=== PATIENT | male | born 1940 | race Caucasian/White ===

== ENCOUNTER 2017-04-27 07:39 | Observation (INO) | payer MEDICARE ==
[~2017-04-27] VITALS: Ht 175.3 cm; Wt 70.9 kg
[~2017-04-27 07:39] MED LIST: AMLO5TAB2 PO; ASPI-110 PO; BUPIVACAINE HCL PF 0.5% 30 ML VIAL ONE; CALC-187 PO; COQ150CA PO; FISHCAP4 PO; GELFOAM SIZE 100 ONE; GENTAMICIN SULFATE 80 MG/2 ML VIAL ONE; MULTTAB67 PO; PRED5TAB PO; PROS5TAB PO; SERT25TA83 PO; SIMV10TA PO; THROMBIN (TOPICAL) 5,000 UNIT VIAL ONE; VITACAP7 PO; ceFAZolin 2 GM PREMIX 50 ML ONE; methylPREDNISolone ACETATE 40 MG/ML VIAL ONE
[2017-04-27] MEDS ORDERED: INSULIN HUMAN REGULAR 1,000 UNITS/10 ML VIAL SQ PRN (08:45)
[2017-04-27] MEDS ORDERED: SODIUM CHLORID 0.9% 500 ML IV PRN (08:45)
[2017-04-27] MEDS ORDERED: VANCOMYCIN HCL 1000 MG ON-CALL/NS 250 ML IV SCH ×2 (08:45)
[2017-04-27] MEDS ORDERED: POVIDONE IODINE 5% (ANTISEPSIS KIT) 4 APPLICATIONS EACH NARE PRN (08:45)
[2017-04-27] MEDS ORDERED: LACTATED RINGER'S 1000 ML IV PRN (08:45)
[2017-04-27] MEDS ORDERED: METOPROLOL TARTRATE 25 MG TAB PO PRN (08:45)
[2017-04-27] MEDS ORDERED: CHLORHEXIDINE GLUCONATE 2 % 1 PACK (2 CLOTHS) TOPICAL PRN (08:45)
[2017-04-27 08:52] VITALS: BP 158/88; PULSE 61; RESP 18; TEMP 97.7; O2SAT 99
[2017-04-27] MEDS ORDERED: SODIUM CHLOR 0.9% 1000 ML INJ 1,000 ML IV SCH (09:00)
[2017-04-27 09:11] LABS: APTT (PATIENT) 29.1 SEC (24.3-30.1)
[2017-04-27] MEDS ORDERED: ACETAMINOPHEN 1000 MG/100 ML VIAL IV ONE (10:29)
[2017-04-27] MEDS ORDERED: MIDAZOLAM HCL 2 MG/2 ML VIAL ONE (10:29)
[2017-04-27] MEDS ORDERED: fentaNYL CITRATE 250 MCG/5 ML AMP ONE (10:30)
[2017-04-27] MEDS ORDERED: DO NOT ADM ANY ANTICOAGULANT DRUGS PRN (12:33)
[2017-04-27] MEDS ORDERED: MORPHINE SULFATE 4 MG/ML INJ IV PUSH PRN ×2 (13:00)
[2017-04-27] MEDS ORDERED: ACETAMINOPHEN 325 MG TAB PO PRN (13:00)
[2017-04-27] MEDS ORDERED: SODIUM CHLORIDE 0.9% FLUSH 5 ML FLUSH IVF PRN (13:00)
[2017-04-27] MEDS ORDERED: *morphine SULFATE 8 MG/ML PERIprocedure ONLY ONE ×2 (13:21→14:15)
[2017-04-27] MEDS ORDERED: PHENYLEPH/NS 1000 MCG/10 ML SYR IV ONE (14:03)
[2017-04-27] MEDS ORDERED: PROPOFOL 200 MG/20 ML AMP IV ONE (14:03)
[2017-04-27] MEDS ORDERED: ONDANSETRON HCL 4 MG/2 ML VIAL IV PUSH ONE (14:04)
[2017-04-27] MEDS ORDERED: LACTATED RINGER'S 1000 ML INJ 1,000 ML IV ONE (14:04)
--- NOTE | 2017-04-27 16:01 | RADRPT ---
EXAM DATE/TIME: 04/27/2017 11:11 [place] COMPARISON: No previous studies available for comparison. INDICATIONS : Level Localization L4,L5 laminectomy. MEDICAL HISTORY : None. SURGICAL HISTORY : None. ENCOUNTER: Initial ACUITY: 1 day PAIN SCORE: Non-responsive. LOCATION: Lumbar spine. FINDINGS: Surgical instruments are noted posteriorly at the L4-5 level. CONCLUSION: 1. Surgical instruments noted posteriorly at the L4-5 level. Sheldon Cruz MD on April 27, 2017 at 15:56 Board Certified Radiologist. This report was verified electronically.
[2017-04-27] MEDS: ACETAMINOPHEN/HYDROcodone 325 MG/10 MG TAB PO PRN ×2 (16:16→21:25)
[2017-04-27] MEDS: ceFAZolin 2 GM PREMIX 50 ML IV SCH (18:00)
[2017-04-27 20:00] VITALS: BP 142/82; PULSE 67; RESP 18; TEMP 97.9; O2SAT 96
[2017-04-27] MEDS: DOCUSATE SODIUM 100 MG CAP PO SCH (21:23)
[2017-04-27] MEDS: SODIUM CHLORIDE 0.9% FLUSH 5 ML FLUSH IVF SCH (21:24)
[2017-04-27] MEDS: NS + KCL 20 MEQ INJ 1,000 ML IV SCH (22:39)
[2017-04-28] VITALS: BP 125/74; PULSE 55; RESP 18; TEMP 97.9; O2SAT 96
[2017-04-28] MEDS: ceFAZolin 2 GM PREMIX 50 ML IV SCH ×2 (01:47→09:36)
[2017-04-28] MEDS: ACETAMINOPHEN/HYDROcodone 325 MG/10 MG TAB PO PRN ×3 (01:55→11:55)
[2017-04-28 04:00] VITALS: BP 135/70; PULSE 59; RESP 18; TEMP 98.2; O2SAT 97
[2017-04-28 08:20] VITALS: BP 168/86; PULSE 62; RESP 20; TEMP 98.6; O2SAT 98
[2017-04-28] MEDS ORDERED: amLODIPine BESYLATE 5 MG TAB PO SCH (09:00)
[2017-04-28] MEDS ORDERED: SERTRALINE HCL 50 MG TAB PO SCH (09:00)
[2017-04-28] MEDS ORDERED: PRAVASTATIN SOD 20 MG TAB PO SCH (09:00)
[2017-04-28] MEDS ORDERED: NON-FORMULARY DRUG (Coenzyme Q10 (Ubidecarenone) (Coq10) 100 MG) PO SCH (09:00)
[2017-04-28] MEDS ORDERED: MULTIVITAMIN TAB PO SCH (09:00)
[2017-04-28] MEDS ORDERED: CALCIUM CARBONATE 500 MG CHEWABLE TAB PO SCH (09:00)
[2017-04-28] MEDS ORDERED: FINASTERIDE 5 MG TAB PO SCH (09:00)
[2017-04-28] MEDS ORDERED: NON-FORMULARY DRUG (Fish Oil-Cholecalciferol (Fish Oil + D3) 1 CAP) PO SCH (09:00)
[2017-04-28] MEDS ORDERED: predniSONE 5 MG TAB PO SCH (09:00)
[2017-04-28] MEDS ORDERED: PANTOPRAZOLE SOD 40 MG DELAYED RELEASE TAB PO SCH (09:00)
[2017-04-28] MEDS ORDERED: VITAMIN B COMPLEX/VIT C TAB PO SCH (09:00)
[2017-04-28] MEDS ORDERED: HYDR-3583 PO (09:01)
[2017-04-28] MEDS: DOCUSATE SODIUM 100 MG CAP PO SCH (09:37)
[2017-04-28] MEDS: SODIUM CHLORIDE 0.9% FLUSH 5 ML FLUSH IVF SCH (09:39)
[2017-04-28] MEDS: NS + KCL 20 MEQ INJ 1,000 ML IV SCH (09:39)
--- NOTE | 2017-04-28 09:54 | HHI.DCPOC ---
Discharge Care Plan Diagnosis: (1) S/P lumbar laminectomy Goals to Promote Your Health * To prevent worsening of your condition and complications * To maintain your health at the optimal level Directions to Meet Your Goals Take your medications as prescribed Follow your dietary instruction Follow activity as directed Keep your appointments as scheduled Take your immunizations and boosters as scheduled If your symptoms worsen call your PCP, if no PCP go to Urgent Care Center or Emergency Room Smoking is Dangerous to Your Health. Avoid second hand smoke Call the 24-hour hour crisis hotline for domestic abuse at Connie Duval Apr 28, 2017 09:54
--- NOTE | 2017-04-28 09:54 | HHI.DS ---
Discharge Summary Admission Date Apr 27, 2017 at 12:58 Discharge Date: Apr 28, 2017 Admitting Diagnosis s/p lumbar laminectomy and microdiscectomy (1) S/P lumbar laminectomy ICD Code: Z98.890 Brief History Mr Sosa is a 76 year-old male who presented with intractable back pain and génesis evidence of right L5 lower extremity radiculopathy. He failed maximum nonsurgical management including multiple modalities of conservative treatment as well as pain management interventions by an interventional pain specialist. A surgical decompression was indicated as a last resort. Imaging Last Impressions Lumbar Spine X-Ray 04/27/17 0000 Signed Impressions: Service Date/Time: Thursday, April 27, 2017 11:11 - CONCLUSION: 1. Surgical instruments noted posteriorly at the L4-5 level. Sheldon Cruz MD Hospital Course Mr. Sosa underwent a right L4-5 hemilaminectomy, mesoofacetectomy, foraminotomy with microsurgical resection of the disk on Apr 27, 2017. He was discharged home in stable conditions. Wound care and activity restrictions were discussed. Pt Condition on Discharge: Stable Discharge Disposition: Discharge Home Discharge Instructions DIET: Follow Instructions for: Heart Healthy Diet ACTIVITIES You can perform: Weight Bearing As Leidy ADDITIONAL Activity Instructio: Avoid strenuous activities, heavy lifting, overhead activities, repetitive bending, twisting, pushing, pulling or any activities which might result in stress over the spine. Avoid situtation that will put at risk for falls. Use assistive device as needed for walking. Wear lumbar brace when out of bed. New Medications: Hydrocodone-Acetaminophen (Hydrocodone-Acetaminophen) 10-325 mg Tab 1 TAB PO Q8HR PRN PAIN SCALE 1 TO 10 #90 Ref 0 TAB Continued Medications: Amlodipine (Amlodipine) 5 Mg Tab 5 MG PO DAILY Blood Pressure Management #30 Ref [address] (Aspirin 81) 81 Mg Tabdr 81 MG PO DAILY Ref 0 TAB B-Complex Vitamins (B Complex) 1 Cap 1 CAP PO DAILY Nutritional Supplement #30 Ref 0 CAP Calcium Carbonate-Cholecalciferol (Calcium 500/Vitamin D3) 500-400 Mg-Unit Tab 1 TAB PO DAILY Nutritional Supplement TAB Coenzyme Q10 (Ubidecarenone) (Coq10) 50 Mg Cap 100 MG PO DAILY Nutritional Supplement Finasteride (Proscar) 5 Mg Tab 5 MG PO DAILY Do not crush. Manage Prostate Problems #30 Ref 0 TAB Fish Oil-Cholecalciferol (Fish Oil + D3) 1,200-1,000 Mg-Unit Cap 1 CAP PO DAILY Nutritional Supplement #30 Ref 0 CAP Multiple Vitamin (Multiple Vitamin) 1 Tab 1 TAB PO DAILY Nutritional Supplement Ref 0 TAB Prednisone (Prednisone) 5 Mg Tab 5 MG PO DAILY Ref 0 TAB Sertraline (Sertraline) 25 Mg Tab 25 MG PO DAILY #30 Ref 0 TAB Simvastatin (Simvastatin) 10 Mg Tab 10 MG PO DAILY Cholesterol Management #30 Ref 0 TAB Connie Duval Apr 28, 2017 09:54
--- NOTE | 2017-05-02 10:20 | PD.OP ---
Operative Report Date of Surgery: Apr 27, 2017 Preoperative Diagnosis: Lumbar spinal stenosis Postoperative Diagnosis: Lumbar spinal stenosis Procedure: Right L4-5 hemilaminectomy, mesoofacetectomy, foraminotomy with microsurgical resection of the disk Anesthesia: general Surgeon: Maoc Dillon Supervisor Shop(s): Olive Mendiola Operation and Findings: INDICATIONS FOR THE SURGICAL PROCEDURE Mr Sosa is a 76 year-old male who presented with intractable back pain and génesis evidence of right L5 lower extremity radiculopathy. He failed maximum nonsurgical management including multiple modalities of conservative treatment as well as pain management interventions by an interventional pain specialist. A surgical decompression was indicated as a last resort. The [id number]-[id number] details of the procedure, indications, alternatives, risks and potential complications were fully discussed with the patient. The patient fully understood. All the questions were answered. No guarantees were given. The patient voiced requesting the procedure and provided informed consents. The patient was offered the alternative of delaying the procedure and continuing with nonsurgical management. DETAILS OF THE SURGICAL PROCEDURE After the induction of general anesthesia, endotracheal intubation was performed. A Shane catheter, bilateral ISMA hose and sequential compression devices were placed and kept throughout the procedure. The patient was positioned prone on a Mark Anthony table over a Nick frame. All pressure points were carefully padded with eggcrate mattress. The eyes were tapped shut after ointment was applied by the anesthesiologist to prevent corneal abrasion. A Jyoti hugger was placed over the exposed lower body to maintain control of the core body temperature. The lower lumbar region was prepped and draped in the usual sterile fashion. A spinal needle was placed on the paraspinal muscle and a cross-table lateral x-ray performed with a C-arm. The skin incision was made over the spinous process of L4 and L5 along the midline. Small subcutaneous bleeders were controlled with a bipolar. The subcutaneous tissue and thoracolumbar fascia was opened with the Bovie and the spinous process of L4 and L5 were exposed. Then, using a Timmons elevator and a Bovie a subperiosteal dissection was performed over the right spinous process lamina and facet at L4 and L5 on the right side. A microdiscectomy self- retaining retractor was placed and an instrument was placed underneath the lamina of L4, and another cross-table lateral x-ray performed for radiological confirmation of the level. At this point in the procedure the operating microscope was draped in the usual sterile fashion and brought to the field. The rest of the surgical procedure was performed using microsurgical dissection technique with exception of the closure. Once the level was confirmed, a TPS drill brought to the field and a right hemilaminectomy was performed at L4-L5 on the right side in standard fashion using the AM-8 drill bit, exposing the ligamentum flavum. The superior free border of the ligamentum flavum was from the dura with a ligament dissector and the ligamentum flavum was carefully removed with a 3 mm thin footplate Kerrison. The ligament Flavum and facets were significantly hypertrophic resulting on mass effect on the dural sac. Then, the medial aspect of the facet was drilled and undermined and the exiting L5 nerve root was identified and followed towards the foramen. A foraminotomy was performed with a 3 mm Kerrison. Then, the TPS drill was used to undermine the base of the spinous process, in order to carry out the decompression across the midline to the contralateral side. The ligamentum flavum across the midline was dissected from the dura with a ligament dissector and carefully removed with a 3 mm thin footplate Kerrison. An appropriate decompression of the dural sac and nerve root was achieved. Epidural veins located laterally to the dural sac were carefully coagulated with a bipolar and incised with microscissors. Gentle medial retraction of the dural sac allowed inspection of the disc space. The patient had a broad-based disc protusion which combined with the hypertrophic facets and ligamentun flavum was producing significant stenosis with mass effect on the dural sac and nerve root. Microdiscectomy was then deemed necessary. The annulus fibrosus was thoroughly coagulated with the bipolar and incised with a #10 blade. Then, a microdiscectomy was carried out in the standard fashion using straight and up-biting pituitary forceps. A reverse angle curet was used to push the extruded disc fragments into the disc space so they could be removed with pituitary forceps. Special attention was placed on the middle nerve root and axilla of the nerve root where disc fragments were found, which were carefully dissected and pushed into the disc space and removed with the Kerrison. A good decompression was achieved. The disc space was then irrigated with antibiotic solution. The incision was then thoroughly irrigated with antibiotic solution and hemostasis secured with the bipolar. A Valsalva maneuver failed to show any cerebrospinal fluid leak or bleeding. The incision was irrigated and closed in layers. 0 Vicryl with interrupted sutures was used to close the thoracolumbar fascia and superficial fascia. The subcutaneous tissue was closed with 3-0 Vicryl. The skin was closed with 4-0 running subcuticular Vicryl. Dermabond was applied to the skin. At the end of the procedure, the sponge, needle and instrument counts were all correct. Estimated blood loss was less than 55cc. No blood transfusion was given. No intraoperative complications occurred. The patient received prophylactic antibiotics. The patient was then extubated and transferred to the recovery room in stable condition. Maco Dillon MD May 02, 2017 10:20
== END 2017-04-28 12:37 | disposition home or self-care (01) ==
LOC: HSDC 07:39 → HSDI 12:58 → N05B 18:17
PROVIDERS: ADMIT Neurological Surgery; ATTEND Neurological Surgery
PROC: 01NB0ZZ Release Lumbar Nerve, Open Approach (ICD-10-PCS; 2017-04-27)
PROC: 0ST20ZZ Resection of Lumbar Vertebral Disc, Open Approach (ICD-10-PCS; principal; 2017-04-27 10:36)
DX: M48.06 Spinal stenosis, lumbar region (principal); I10 Essential (primary) hypertension; E78.5 Hyperlipidemia, unspecified; J45.909 Unspecified asthma, uncomplicated; G62.9 Polyneuropathy, unspecified; Z79.82 Long term (current) use of aspirin; Z79.899 Other long term (current) drug therapy
CPT/HCPCS: 00670; 63047; 72020; 76000; 85730; 94150; 97162; G0378; G8987; G8988; J0131; J0690; J1030; J1580; J2250; J2270; J2370; J2405; J3010; J3370; J3480; J7050; J7120; J7512; L0627